=== PATIENT | male | born 1960 | race Caucasian/White ===

== ENCOUNTER 2018-01-27 20:48 | Emergency (ER) | payer OTHER ==
[~2018-01-27] VITALS: Ht 185.4 cm; Wt 75.0 kg
[~2018-01-27 20:48] MED LIST: AMLODIPINE5 MG PO; FENOFIBRATE54 MG PO; ISOSORB MONO30 MG PO; LABETALOL100 MG PO; OMEPRAZOLE10 MG PO; PERCOCET 5/325M1 TAB PO; PHOSLO667 M1 PO; RANITIDINE150 M1 PO; ROBAXIN-750750 MG PO; VITAMIN D1000 UNI1 PO; ZESTRIL10 M1 PO
[2018-01-27 21:49] LABS: HEMATOCRIT 34.5 % (39.0-50.0); HEMOGLOBIN 11.3 g/dl (14.0-18.0); IMMATURE GRANULOCYTES 0.3 % (0.0-1.0); MEAN CELL VOLUME 87.6 fL CALC (80.0-100.0); MEAN CORPUSCULAR HGB 28.7 pG CALC (26.0-32.0); MEAN CORPUSCULAR HGB CONC 32.8 g/L CALC (32.0-36.0); NEUT# 6.64 thou/uL (1.82-7.42); RED BLOOD COUNT 3.94 mill/uL (4.70-6.10); RED CELL DISTRI WIDTH 14.9 % (11.5-15.5)
[2018-01-27 22:06] LABS: ALBUMIN 3.9 g/dL (3.2-5.0); BILIRUBIN, TOTAL 0.5 mg/dL (0.0-1.4); TOTAL PROTEIN 6.6 g/dL (6.3-8.2)
[2018-01-27 22:09] LABS: CREATININE 6.7 mg/dL (0.7-1.3); POTASSIUM 5.3 mmol/l (3.5-5.1)
[2018-01-27 23:17] LABS: URINE BILIRUBIN - DIPSTICK NEGATIVE (NEGATIVE); URINE BLOOD DIPSTICK SMALL (NEGATIVE); URINE COLOR YELLOW; URINE GLUCOSE - DIPSTICK 250 mg/dL (NEGATIVE); URINE KETONE NEGATIVE (NEGATIVE); URINE LEUK ESTERASE NEGATIVE (NEGATIVE); URINE NITRITE - DIPSTICK NEGATIVE (Negative); URINE PH 8.5 (4.5-8.0); URINE PROTEIN - DIPSTICK 100 mg/dL (NEG-TRACE); URINE SPECIFIC GRAVITY 1.015; URINE UROBILINOGEN - DIPSTICK 0.2 E.U./dL (0.2)
[2018-01-27 23:20] LABS: URINE CLARITY SL CLOUDY
[2018-01-27 23:21] LABS: URINE BACTERIA FEW hpf; URINE MUCUS FEW hpf (NONE-FEW); URINE SQUAMOUS EPITHELIAL CELL FEW EPI/hpf (0-FEW)
[2018-01-28 00:20] VITALS: BP 167/81
== END 2018-01-28 00:32 | disposition short-term general hospital (02) | DRG 536 ==
LOC: ED 20:48
PROVIDERS: Emergency Medicine
DX: S72.141A Displaced intertrochanteric fracture of right femur, initial encounter for closed fracture (principal); Q61.3 Polycystic kidney, unspecified; F17.210 Nicotine dependence, cigarettes, uncomplicated; W18.30XA Fall on same level, unspecified, initial encounter; Y92.149 Unspecified place in prison as the place of occurrence of the external cause

== ENCOUNTER 2018-03-18 09:52 | Emergency (ER) | payer OTHER ==
[~2018-03-18] VITALS: Ht 185.4 cm; Wt 90.0 kg
[2018-03-18] MEDS ORDERED: EUCERI1 TOP (10:06)
[2018-03-18] MEDS ORDERED: BACLOFEN10 MG PO (10:06)
[2018-03-18] MEDS ORDERED: NEPHROCAPS PO (10:07)
[2018-03-18] MEDS ORDERED: RENAGEL 800MG800 MG PO (10:08)
[2018-03-18] MEDS ORDERED: TAMSULOSIN0.4 MG PO (10:08)
[2018-03-18 10:53] LABS: HEMATOCRIT 33.2 % (39.0-50.0); HEMOGLOBIN 10.8 g/dl (14.0-18.0); IMMATURE GRANULOCYTES 0.4 % (0.0-1.0); MEAN CELL VOLUME 89.5 fL CALC (80.0-100.0); MEAN CORPUSCULAR HGB 29.1 pG CALC (26.0-32.0); MEAN CORPUSCULAR HGB CONC 32.5 g/L CALC (32.0-36.0); NEUT# 4.34 thou/uL (1.82-7.42); RED BLOOD COUNT 3.71 mill/uL (4.70-6.10); RED CELL DISTRI WIDTH 15.4 % (11.5-15.5)
[2018-03-18 11:09] LABS: ANION GAP 16 (6-22 (CALC)); BUN 66 mg/dL (9-20); CARBON DIOXIDE 32 mmol/l (22-30); CHLORIDE 97 mmol/l (95-108); SODIUM 139 mmol/l (137-146)
[2018-03-18 11:11] LABS: BUN/CREATININE RATIO 9 (12-20 (CALC)); CREATININE 7.1 mg/dL (0.7-1.3); GFR 8 ML/MIN (>=60 (CALC)); GFR FOR AFR.AMER. 10 ML/MIN (>=60 (CALC)); POTASSIUM 5.9 mmol/l (3.5-5.1)
[2018-03-18 15:57] VITALS: BP 168/70
== END 2018-03-18 15:59 | DRG 293 ==
LOC: ED 09:52
PROVIDERS: Family Medicine
DX: I50.9 Heart failure, unspecified (principal); R06.02 Shortness of breath; F17.200 Nicotine dependence, unspecified, uncomplicated; Z99.2 Dependence on renal dialysis

== ENCOUNTER 2018-04-23 09:00 | Outpatient (RCR) | payer OTHER ==
[~2018-04-23 09:00] MED LIST changes: +BACLOFEN10 MG PO; +EUCERI1 TOP; +NEPHROCAPS PO; +RENAGEL 800MG800 MG PO; +TAMSULOSIN0.4 MG PO
== END 2018-04-23 10:00 | disposition home or self-care (01) | DRG 556 ==
LOC: PT 09:00
PROVIDERS: ATTEND Internal Medicine
DX: M25.551 Pain in right hip (principal)

== ENCOUNTER → 2018-06-05 | Outpatient (REF) | payer OTHER ==
[2018-06-05 09:49] LABS: HEMATOCRIT 34.5 % (39.0-50.0); HEMOGLOBIN 11.3 g/dl (14.0-18.0); IMMATURE GRANULOCYTES 0.3 % (0.0-5.0); MEAN CELL VOLUME 90.8 fL CALC (80.0-100.0); MEAN CORPUSCULAR HGB 29.7 pG CALC (26.0-32.0); MEAN CORPUSCULAR HGB CONC 32.8 g/L CALC (32.0-36.0); NEUT# 4.4 thou/uL (1.82-7.42); RED BLOOD COUNT 3.8 mill/uL (4.70-6.10); RED CELL DISTRI WIDTH 16.1 % (11.5-15.5)
[2018-06-05 10:08] LABS: ALBUMIN 4.1 g/dL (3.2-5.0); BILIRUBIN, TOTAL 0.7 mg/dL (0.0-1.4); TOTAL PROTEIN 6.9 g/dL (6.3-8.2)
[2018-06-05 10:14] LABS: POTASSIUM 5.4 mmol/l (3.5-5.1)
[2018-06-05 10:15] LABS: CREATININE 7.9 mg/dL (0.7-1.3)
== END | disposition home or self-care (01) | DRG 948 ==
LOC: LABSPEC 09:38
PROVIDERS: ATTEND Internal Medicine
DX: R41.82 Altered mental status, unspecified (principal)

== ENCOUNTER → 2018-06-06 | Outpatient (REF) | payer OTHER ==
[2018-06-06 13:34] LABS: HEMATOCRIT 37.5 % (39.0-50.0); HEMOGLOBIN 12.4 g/dl (14.0-18.0); IMMATURE GRANULOCYTES 0.3 % (0.0-5.0); MEAN CELL VOLUME 89.9 fL CALC (80.0-100.0); MEAN CORPUSCULAR HGB 29.7 pG CALC (26.0-32.0); MEAN CORPUSCULAR HGB CONC 33.1 g/L CALC (32.0-36.0); NEUT# 5.34 thou/uL (1.82-7.42); RED BLOOD COUNT 4.17 mill/uL (4.70-6.10); RED CELL DISTRI WIDTH 16.4 % (11.5-15.5)
[2018-06-06 13:54] LABS: ALBUMIN 4.6 g/dL (3.2-5.0); BILIRUBIN, TOTAL 1.1 mg/dL (0.0-1.4)
[2018-06-06 14:02] LABS: CREATININE 9.8 mg/dL (0.7-1.3); POTASSIUM 6.1 mmol/l (3.5-5.1)
== END | disposition home or self-care (01) | DRG 684 ==
LOC: LABSPEC 13:29
PROVIDERS: ATTEND Internal Medicine
DX: N19 Unspecified kidney failure (principal)

== ENCOUNTER → 2018-06-12 | Outpatient (REF) | payer OTHER ==
[2018-06-12 13:05] LABS: HEMATOCRIT 37.2 % (39.0-50.0); HEMOGLOBIN 12.2 g/dl (14.0-18.0); IMMATURE GRANULOCYTES 0.3 % (0.0-5.0); MEAN CELL VOLUME 89.6 fL CALC (80.0-100.0); MEAN CORPUSCULAR HGB 29.4 pG CALC (26.0-32.0); MEAN CORPUSCULAR HGB CONC 32.8 g/L CALC (32.0-36.0); NEUT# 4.96 thou/uL (1.82-7.42); RED BLOOD COUNT 4.15 mill/uL (4.70-6.10); RED CELL DISTRI WIDTH 15.8 % (11.5-15.5)
[2018-06-12 13:22] LABS: ALBUMIN 4.5 g/dL (3.2-5.0); TOTAL PROTEIN 7.5 g/dL (6.3-8.2)
[2018-06-12 13:29] LABS: CREATININE 10.3 mg/dL (0.7-1.3); POTASSIUM 6.3 mmol/l (3.5-5.1)
== END | disposition home or self-care (01) | DRG 684 ==
LOC: LABSPEC 12:54
PROVIDERS: ATTEND Internal Medicine
DX: N18.9 Chronic kidney disease, unspecified (principal); E87.5 Hyperkalemia

== ENCOUNTER → 2018-11-19 | Outpatient (REF) | payer OTHER ==
[~2018-11-19] MED LIST changes: +INSTA GLUCOSE PO; +PAXIL30 MG PO; +PERCOCET 10/31 COMBO PO; +[UNRECOGNIZED DRUG - OTHER] TOP
== END | disposition home or self-care (01) | DRG 561 ==
LOC: DI 08:48
PROVIDERS: ATTEND Orthopaedic Surgery
DX: S82.52XD Displaced fracture of medial malleolus of left tibia, subsequent encounter for closed fracture with routine healing (principal); S82.832D Other fracture of upper and lower end of left fibula, subsequent encounter for closed fracture with routine healing

== ENCOUNTER → 2018-11-25 | Day surgery (SDC) | payer OTHER ==
[2018-11-25 13:11] LABS: HEMATOCRIT 41.5 % (39.0-50.0); HEMOGLOBIN 13.8 g/dl (14.0-18.0); IMMATURE GRANULOCYTES 0.2 % (0.0-5.0); MEAN CELL VOLUME 89.1 fL CALC (80.0-100.0); MEAN CORPUSCULAR HGB 29.6 pG CALC (26.0-32.0); MEAN CORPUSCULAR HGB CONC 33.3 g/L CALC (32.0-36.0); NEUT# 6.04 thou/uL (1.82-7.42); RED BLOOD COUNT 4.66 mill/uL (4.70-6.10); RED CELL DISTRI WIDTH 13.9 % (11.5-15.5)
[2018-11-25 13:24] LABS: ACT PARTIAL THROMBO TIME 28.7 SECONDS (20.0-32.5); PROTHROMBIN TIME 10.2 SECONDS (9.0-12.5)
[2018-11-25 13:45] LABS: ALBUMIN 4.6 g/dL (3.2-5.0); BILIRUBIN, TOTAL 1.2 mg/dL (0.0-1.4); TOTAL PROTEIN 7.7 g/dL (6.3-8.2)
[2018-11-25 13:46] LABS: CREATININE 3.6 mg/dL (0.7-1.3); POTASSIUM 4.1 mmol/l (3.5-5.1)
[2018-11-25 17:36] VITALS: BP 177/94
== END | disposition home or self-care (01) | DRG 494 ==
LOC: ORM 11:33
PROVIDERS: ATTEND Orthopaedic Surgery
PROC: 0QSK04Z Reposition Left Fibula with Internal Fixation Device, Open Approach (ICD-10-PCS; principal; 2018-11-25)
PROC: 0QSH04Z Reposition Left Tibia with Internal Fixation Device, Open Approach (ICD-10-PCS; 2018-11-25)
DX: S82.842A Displaced bimalleolar fracture of left lower leg, initial encounter for closed fracture (principal); E11.9 Type 2 diabetes mellitus without complications; W19.XXXA Unspecified fall, initial encounter; Y92.149 Unspecified place in prison as the place of occurrence of the external cause

== ENCOUNTER 2019-06-16 19:07 | Emergency (ER) | payer OTHER ==
[~2019-06-16] VITALS: Ht 185.4 cm; Wt 73.0 kg
[~2019-06-16 19:07] MED LIST changes: -LABETALOL100 MG PO; +LABETALOL200 MG PO
[2019-06-16] MEDS ORDERED: SEVELAMER HYDR800 MG PO (19:41)
[2019-06-16] MEDS ORDERED: NIFEDIPINE60 MG PO (19:42)
[2019-06-16] MEDS ORDERED: RANITIDINE150 M1 PO (19:43)
[2019-06-16] MEDS ORDERED: VITAMIN D1000 UNI2 PO (19:45)
[2019-06-16] MEDS ORDERED: TAMSULOSIN HCL0.4 MG PO (19:46)
[2019-06-16] MEDS ORDERED: BACLOFEN10 MG PO (19:46)
[2019-06-16] MEDS ORDERED: RENO PO (19:47)
[2019-06-16] MEDS ORDERED: LIDO/PRILOCN1 CRE EX (19:48)
[2019-06-16 20:06] LABS: IMMATURE GRANULOCYTES 0.3 % (0.0-5.0); MEAN CELL VOLUME 88.2 fL CALC (80.0-100.0); MEAN CORPUSCULAR HGB 29.2 pG CALC (26.0-32.0); MEAN CORPUSCULAR HGB CONC 33.2 g/L CALC (32.0-36.0); NEUT# 8.59 thou/uL (1.82-7.42); RED BLOOD COUNT 4.65 mill/uL (4.70-6.10); RED CELL DISTRI WIDTH 16.1 % (11.5-15.5)
[2019-06-16 20:09] LABS: HEMOGLOBIN 13.6 g/dl (14.0-18.0)
--- NOTE | 2019-06-16 20:26 | NUR ---
BREATHING TREATMENT GIVEN. BREATHING TECH. FOR GOOD DEPOSITION TO THE LUNGS.
[2019-06-16 20:38] LABS: ALBUMIN 5.6 g/dL (3.2-5.0); BILIRUBIN, TOTAL 0.9 mg/dL (0.0-1.4); CREATININE 5.1 mg/dL (0.7-1.3); POTASSIUM 5.7 mmol/l (3.5-5.1); TOTAL PROTEIN 9.5 g/dL (6.3-8.2)
[2019-06-16] MEDS ORDERED: PREDNISONE50 MG PO (21:04)
[2019-06-16] MEDS ORDERED: DOXYCYCL HYC100 MG PO (21:04)
[2019-06-16] MEDS ORDERED: VENTOLIN HFA IN (21:05)
[2019-06-16 22:12] VITALS: BP 134/71
== END 2019-06-16 22:12 | disposition designated cancer center or children's hospital (05) | DRG 202 ==
LOC: ED 19:07
PROVIDERS: Family Medicine
DX: J40 Bronchitis, not specified as acute or chronic (principal); E87.5 Hyperkalemia; R07.89 Other chest pain; N18.6 End stage renal disease; I12.0 Hypertensive chronic kidney disease with stage 5 chronic kidney disease or end stage renal disease; Z99.2 Dependence on renal dialysis; E11.22 Type 2 diabetes mellitus with diabetic chronic kidney disease

== ENCOUNTER 2019-10-18 21:14 | Observation (INO) | payer OTHER ==
[~2019-10-18] VITALS: Ht 185.4 cm; Wt 65.9 kg
[~2019-10-18 21:14] MED LIST changes: +DOXYCYCL HYC100 MG PO; +LIDO/PRILOCN1 CRE EX; +NIFEDIPINE60 MG PO; +PREDNISONE50 MG PO; +RENO PO; +SEVELAMER HYDR800 MG PO; +TAMSULOSIN HCL0.4 MG PO; +VENTOLIN HFA IN; +VITAMIN D1000 UNI2 PO
[2019-10-18] MEDS ORDERED: DIPHENHYDRAM25 MG PO (21:40)
[2019-10-18] MEDS ORDERED: HALDOL5 M1 PO (21:42)
[2019-10-18] MEDS ORDERED: ATIVAN1 M1 PO (21:43)
[2019-10-18] MEDS ORDERED: NITROSTAT0.4 MG SL (21:45)
[2019-10-18] MEDS ORDERED: [UNRECOGNIZED DRUG - OTHER] PO (21:47)
[2019-10-18 22:19] LABS: HEMOGLOBIN 12.7 g/dl (14.0-18.0); IMMATURE GRANULOCYTES 0.3 % (0.0-5.0); MEAN CORPUSCULAR HGB CONC 32.6 g/L CALC (32.0-36.0); NEUT# 8.4 thou/uL (1.82-7.42); RED BLOOD COUNT 4.38 mill/uL (4.70-6.10); RED CELL DISTRI WIDTH 14.9 % (11.5-15.5)
[2019-10-18 22:39] LABS: ALBUMIN 4.6 g/dL (3.2-5.0); POTASSIUM 4.5 mmol/l (3.5-5.1); TOTAL PROTEIN 8.1 g/dL (6.3-8.2)
[2019-10-18 22:41] LABS: BILIRUBIN, TOTAL 1.2 mg/dL (0.0-1.4); CREATININE 6.9 mg/dL (0.7-1.3)
[2019-10-19] VITALS (19 sets, daily range): BP systolic 82–125; BP diastolic 44–64
[2019-10-20 04:02] VITALS: BP 115/62
[2019-10-20 07:30] VITALS: BP 121/74
[2019-10-20 10:51] VITALS: BP 123/63
== END 2019-10-20 11:02 | disposition designated cancer center or children's hospital (05) | DRG 312 ==
LOC: ED 21:14 → ED-I 10-19 00:44 → ED 10-19 00:50 → ICU 10-19 00:51
PROVIDERS: Family Medicine; ADMIT Internal Medicine; ATTEND Internal Medicine
DX: I95.2 Hypotension due to drugs (principal); N18.6 End stage renal disease; Q61.3 Polycystic kidney, unspecified; E87.1 Hypo-osmolality and hyponatremia; T44.8X5A Adverse effect of centrally-acting and adrenergic-neuron-blocking agents, initial encounter; I10 Essential (primary) hypertension; E11.40 Type 2 diabetes mellitus with diabetic neuropathy, unspecified; Z99.2 Dependence on renal dialysis

== ENCOUNTER 2020-03-11 10:41 | Emergency (ER) | payer OTHER ==
[~2020-03-11] VITALS: Ht 185.4 cm; Wt 76.3 kg
[~2020-03-11 10:41] MED LIST changes: +ATIVAN1 M1 PO; +DIPHENHYDRAM25 MG PO; +HALDOL5 M1 PO; +NITROSTAT0.4 MG SL; +[UNRECOGNIZED DRUG - OTHER] PO
[2020-03-11 11:37] LABS: HEMATOCRIT 38.2 % (39.0-50.0); HEMOGLOBIN 12.5 g/dl (14.0-18.0); IMMATURE GRANULOCYTES 0.1 % (0.0-5.0); MEAN CORPUSCULAR HGB CONC 32.7 g/dL CAL (32.0-36.0); NEUT# 3.37 thou/uL (1.82-7.42); RED BLOOD COUNT 4.16 mill/uL (4.70-6.10); RED CELL DISTRI WIDTH 14.2 % (11.5-15.5)
[2020-03-11 11:38] LABS: MEAN CELL VOLUME 91.8 fL CALC (80.0-100.0)
[2020-03-11 12:02] LABS: ALBUMIN 4.5 g/dL (3.2-5.0); BILIRUBIN, TOTAL 0.7 mg/dL (0.0-1.4); POTASSIUM 4.7 mmol/l (3.5-5.1); TOTAL PROTEIN 7.4 g/dL (6.3-8.2)
[2020-03-11 12:04] LABS: CREATININE 6.5 mg/dL (0.7-1.3)
[2020-03-11 14:05] VITALS: BP 107/61
== END 2020-03-11 14:05 | DRG 190 ==
LOC: ED 10:41
PROVIDERS: Family Medicine
DX: J44.1 Chronic obstructive pulmonary disease with (acute) exacerbation (principal); N18.6 End stage renal disease; I12.0 Hypertensive chronic kidney disease with stage 5 chronic kidney disease or end stage renal disease; E11.22 Type 2 diabetes mellitus with diabetic chronic kidney disease; E11.40 Type 2 diabetes mellitus with diabetic neuropathy, unspecified; Z86.73 Personal history of transient ischemic attack (TIA), and cerebral infarction without residual deficits; Z99.2 Dependence on renal dialysis; Z20.828 Contact with and (suspected) exposure to other viral communicable diseases